=== PATIENT | male | born 1985 | race Caucasian/White ===

== ENCOUNTER 2017-12-09 13:31 | Inpatient (IN) | payer OTHER ==
[~2017-12-09] VITALS: Ht 175.3 cm; Wt 95.3 kg
[2017-12-09 17:16] LABS: BASOPHILS % 0.8 % (0.0-2.0); EOSINOPHILS % 0.5 % (0.0-5.0); HEMOGLOBIN. 15.7 g/dL (14.0-18.0); LYMPHOCYTES % 24.5 % (20.0-50.0); MEAN CORPUSCULAR HEMOGLOBIN 30.9 pg (28.0-32.0); MEAN CORPUSCULAR VOLUME 88.6 fL (80.0-94.0); MEAN PLATELET VOLUME 9.5 fl (7.4-10.4); MONOCYTES % 6.6 % (2.0-8.0); NEUTROPHILS % 67.6 % (40.0-76.0); PLATELET 226 x1000/uL (130-400); RED BLOOD CELL COUNT 5.08 mill/uL (4.7-6.1); RED CELL DISTRIBUTION WIDTH 12.8 % (11.6-14.6)
[2017-12-09 17:19] LABS: CHLORIDE 106 mEq/L (98-107); INR 1.1; PARTIAL THROMBOPLASTIN TIME 25.2 sec (23.4-31.0); PROTHROMBIN TIME 11.1 sec (9.4-11.6)
[2017-12-09 20:05] VITALS: BP 139/92
[2017-12-09 20:10] VITALS: BP 139/92
[2017-12-09 20:30] VITALS: BP 139/92
[2017-12-09] MEDS ORDERED: ROSU20TA PO (20:32)
[2017-12-09] MEDS ORDERED: ASPI-1159 PO (20:32)
[2017-12-09] MEDS ORDERED: OMEP20CA10 PO (20:32)
[2017-12-09] MEDS ORDERED: COR6 PO (20:32)
[2017-12-09] MEDS ORDERED: LISI10TA5 PO (20:32)
[2017-12-09] MEDS ORDERED: MAGNESIUM/ALUMINUM HYDROXIDE/SIMETHICONE 30ML UDC PO PRN (22:00)
[2017-12-09] MEDS ORDERED: ACETAMINOPHEN 325MG TABLET PO PRN (22:00)
[2017-12-09] MEDS ORDERED: POTASSIUM CHLORIDE 20MEQ TABLET SR PO NR (22:00)
[2017-12-09] MEDS ORDERED: HYDROCODONE/ACETAMINOPHEN 5/325MG TABLET PO PRN (22:00)
[2017-12-09] MEDS ORDERED: CLONIDINE 0.1MG TABLET PO PRN (22:00)
[2017-12-09] MEDS ORDERED: ONDANSETRON 4MG ODT PO PRN (22:00)
[2017-12-09] MEDS ORDERED: IPRATROPIUM/ALBUTEROL 0.5-3(2.5)MG/3ML NEB INH PRN (22:00)
[2017-12-09] MEDS: OMEPRAZOLE 20MG CAPSULE EXTENDED RELEASE PO SCH (22:31)
[2017-12-09] MEDS: LISINOPRIL 10MG TABLET PO SCH (22:32)
[2017-12-09] MEDS: CARVEDILOL 6.25 MG TABLET PO SCH (22:32)
[2017-12-09] MEDS ORDERED: ATORVASTATIN CALCIUM 40MG TABLET PO SCH (23:00)
[2017-12-10] VITALS: BP 115/71
[2017-12-10 01:28] LABS: CHLORIDE 103 mEq/L (98-107)
[2017-12-10 01:39] LABS: CREATINE KINASE 359 IU/L (39-308)
[2017-12-10 01:42] LABS: CREATINE KINASE MB FRACTION 2.2 ng/mL (0.5-3.6)
[2017-12-10 04:00] VITALS: BP 110/68
[2017-12-10] MEDS: OMEPRAZOLE 20MG CAPSULE EXTENDED RELEASE PO SCH (05:57)
[2017-12-10 07:20] LABS: BASOPHILS % 0.7 % (0.0-2.0); EOSINOPHILS % 2.3 % (0.0-5.0); HEMATOCRIT. 42.1 % (42.0-52.0); HEMOGLOBIN. 14.9 g/dL (14.0-18.0); LYMPHOCYTES % 32.9 % (20.0-50.0); MEAN CORPUSCULAR HEMOGLOBIN 31.3 pg (28.0-32.0); MEAN CORPUSCULAR VOLUME 88.6 fL (80.0-94.0); MEAN PLATELET VOLUME 9.7 fl (7.4-10.4); MONOCYTES % 8.5 % (2.0-8.0); NEUTROPHILS % 55.6 % (40.0-76.0); PLATELET 209 x1000/uL (130-400); RED BLOOD CELL COUNT 4.75 mill/uL (4.7-6.1); RED CELL DISTRIBUTION WIDTH 12.6 % (11.6-14.6)
[2017-12-10 07:42] LABS: LDL CHOLESTEROL 107 mg/dL (5-100)
[2017-12-10 07:43] LABS: CREATINE KINASE 261 IU/L (39-308)
[2017-12-10 07:45] LABS: CREATINE KINASE MB FRACTION 1.4 ng/mL (0.5-3.6); HDL CHOLESTEROL 44 mg/dL (40-59)
[2017-12-10 08:00] VITALS: BP 100/61
[2017-12-10] MEDS ORDERED: ASPIRIN 81MG EC TABLET PO SCH (09:00)
[2017-12-10] MEDS: LISINOPRIL 10MG TABLET PO SCH (09:00)
[2017-12-10] MEDS ORDERED: ENOXAPARIN 40MG/0.4ML SYR SUBCUT SCH (09:00)
[2017-12-10] MEDS: CARVEDILOL 6.25 MG TABLET PO SCH (09:00)
[2017-12-10 10:08] LABS: *BARBITURATES SCREEN URINE NEGATIVE (NEGATIVE); *BENZODIAZEPINES SCREEN URINE NEGATIVE (NEGATIVE); *COCAINE SCREEN URINE NEGATIVE (NEGATIVE); METHADONE URINE SCREEN NEGATIVE (NEGATIVE); OPIATES URINE SCREEN NEGATIVE (NEGATIVE); PHENCYCLIDINE URINE SCREEN NEGATIVE (NEGATIVE)
[2017-12-10 10:09] LABS: *AMPHETAMINES SCREEN URINE NEGATIVE (NEGATIVE); CANNABINOID URINE SCREEN NEGATIVE (NEGATIVE)
[2017-12-10] MEDS ORDERED: TICAGRELOR 90 MG TABLET PO SCH ×2 (11:00→21:00)
[2017-12-10 12:00] VITALS: BP 109/79
[2017-12-10] MEDS ORDERED: CLOPIDOGREL 75MG TABLET PO NR (13:45)
[2017-12-10] MEDS ORDERED: POTASSIUM CHLORIDE 20MEQ TABLET SR PO SCH (14:45)
[2017-12-10] MEDS ORDERED: FAMOTIDINE 20MG TABLET PO SCH (21:00)
[2017-12-10] MEDS ORDERED: MEDICATION NOT ON FORMULARY EA (Rosuvastatin Calcium (Crestor) 20 MG) PO SCH (21:00)
[2017-12-11] MEDS ORDERED: CLOPIDOGREL 75MG TABLET PO SCH (09:00)
== END 2017-12-10 16:02 | disposition left against medical advice (07) | DRG 316 ==
LOC: ER 14:21 → 8WST 19:02 → ENRESERV 19:32
PROVIDERS: ADMIT Internal Medicine; ATTEND Internal Medicine
DX: T82.855A Stenosis of coronary artery stent, initial encounter (principal); E78.5 Hyperlipidemia, unspecified; Y83.8 Other surgical procedures as the cause of abnormal reaction of the patient, or of later complication, without mention of misadventure at the time of the procedure; I25.10 Atherosclerotic heart disease of native coronary artery without angina pectoris; Z53.21 Procedure and treatment not carried out due to patient leaving prior to being seen by health care provider; I10 Essential (primary) hypertension; I25.2 Old myocardial infarction; Z82.49 Family history of ischemic heart disease and other diseases of the circulatory system; Z95.5 Presence of coronary angioplasty implant and graft; Z79.82 Long term (current) use of aspirin; Y92.89 Other specified places as the place of occurrence of the external cause; Z79.899 Other long term (current) drug therapy
CPT/HCPCS: 36415; 71045; 80048; 80053; 80061; 80305; 82550; 82553; 82962; 83690; 83735; 84443; 84484; 85025; 85379; 85610; 85730; 93005; 99285; J1650